=== PATIENT | male | born 1995 | race Caucasian/White ===

== ENCOUNTER 2020-12-07 13:14 | Emergency (ER) | payer MEDICAID ==
[~2020-12-07] VITALS: Ht 182.9 cm; Wt 55.0 kg
[~2020-12-07 13:14] MED LIST: CLIN-26 PO
--- NOTE | 2020-12-07 13:54 | NUR ---
DR JOYA IN ROOM TO PLACE A THORAVENT.
[2020-12-07] MEDS ORDERED: ondansetron/PF 4mg/2ml inj IV ONE (14:05)
[2020-12-07] MEDS ORDERED: morphine 4 MG/ML inj SYRINge IV ONE ×2 (14:05→15:10)
--- NOTE | 2020-12-07 14:11 | NUR ---
ADMIN PAIN MEDS ORDERED AFTER DR JOYA FINISHES INSERTION OF THORAVENT.
[2020-12-07] MEDS ORDERED: LORazepam 2 mg/ml vial IV ONE (15:10)
--- NOTE | 2020-12-07 15:37 | NUR ---
PT REQUESTING FOOD. PER DR JOYA HE CAN IT AND IS GOING.
[2020-12-07] MEDS ORDERED: ONDA4TAB6 PO (16:50)
[2020-12-07] MEDS ORDERED: HYDR-3964 PO (16:50)
[2020-12-07 17:09] VITALS: BP 120/84
[2020-12-08] MEDS ORDERED: NO HOME MEDS (13:38)
== END 2020-12-07 17:14 | disposition home or self-care (01) ==
LOC: ER 13:14
DX: J93.83 Other pneumothorax (principal); J93.9 Pneumothorax, unspecified; F12.10 Cannabis abuse, uncomplicated
CPT/HCPCS: 32551; 71045; 93005; 96374; 96375; 96376; 99285; J2060; J2270; J2405; 32554

== ENCOUNTER 2020-12-08 12:09 | Emergency (ER) | payer MEDICAID ==
[~2020-12-08] VITALS: Ht 180.3 cm; Wt 54.4 kg
[~2020-12-08 12:09] MED LIST changes: +HYDR-3964 PO; +ONDA4TAB6 PO
[2020-12-08] MEDS ORDERED: NO HOME MEDS (13:38)
[2020-12-08 13:56] LABS: ALANINE AMINOTRANSFERASE 11 U/L (12-78); ALBUMIN 4.5 G/DL (3.4-5.0); ALBUMIN/GLOBULIN RATIO 1.4 (1.1-1.5); ALKALINE PHOSPHATASE 89 IU/L (46-116); ANION GAP 8 (8-16); ASPARTATE AMINO TRANSFERASE 9 U/L (10-37); BILIRUBIN,TOTAL 0.9 MG/DL (0.1-1.0); BLOOD UREA NITROGEN 15 MG/DL (7-18); CALCIUM 9.2 MG/DL (8.5-10.1); CHLORIDE 106 MMOL/L (99-107); CREATININE 0.94 MG/DL (0.60-1.10); GLUCOSE 93 MG/DL (70-104); POTASSIUM 3.8 MMOL/L (3.5-5.1); SODIUM 142 MMOL/L (135-145); TOTAL CARBON DIOXIDE 28.2 MMOL/L (24-32); TOTAL PROTEIN 7.7 G/DL (6.4-8.2); eGFR > 90 ML/MIN
[2020-12-08] MEDS ORDERED: magnesium 2GM in 50ml NS 50 ML IV PRN (14:15)
[2020-12-08] MEDS ORDERED: HYDROcodone/acetaminophen 10/325mg tab PO PRN (14:15)
[2020-12-08] MEDS ORDERED: potassium Cl 20 mEq SR tablet PO PRN ×2 (14:15)
[2020-12-08] MEDS ORDERED: mag hydrox/Alum hydrox/simeth 30ml oral suspension PO PRN (14:15)
[2020-12-08] MEDS ORDERED: morphine 2 MG/ML inj. syringe IV PRN ×2 (14:15)
[2020-12-08] MEDS ORDERED: potassium Cl 40MEQ/1/2NS 520ml 520 ML IV PRN ×2 (14:15)
[2020-12-08] MEDS ORDERED: HYDROcodone/acetaminophen 5mg/325mg tablet PO PRN (14:15)
[2020-12-08] MEDS ORDERED: magnesium hydroxide 30ml (MOM) UD suspension PO PRN (14:15)
[2020-12-08] MEDS ORDERED: albuterol 2.5 MG/3 ML nebule NEB PRN (14:15)
[2020-12-08] MEDS ORDERED: magnesium 4gm in 100ml NS 100 ML IV PRN (14:15)
[2020-12-08] MEDS ORDERED: ipratropium/albuterol 3ml nebule NEB PRN (14:15)
[2020-12-08] MEDS ORDERED: ondansetron/PF 4mg/2ml inj IV PRN (14:15)
[2020-12-08] MEDS ORDERED: acetaminophen 325mg tablet PO PRN (14:15)
[2020-12-08 14:30] LABS: BASOPHILS % (AUTO) 0.6 % (0-1); EOSINOPHILS % (AUTO) 0.8 % (0-6); HEMATOCRIT 45.2 % (42.0-52.0); HEMOGLOBIN 15.3 g/dl (14.0-17.9); LYMPHOCYTES # (AUTO) 1.8 X10'3 (1.1-4.8); LYMPHOCYTES % (AUTO) 31.1 % (21-51); MEAN CORPUSCULAR HEMOGLOBIN 30.6 PG (27.0-31.0); MEAN CORPUSCULAR HGB CONC 33.9 g/dL (33.0-36.5); MEAN CORPUSCULAR VOLUME 90.3 FL (78-98); MEAN PLATELET VOLUME 9.6 FL (7.4-10.4); MONOCYTES # (AUTO) 0.5 X10'3 (0-0.9); MONOCYTES % (AUTO) 8.3 % (2-12); NEUTROPHILS # (AUTO) 3.4 X10'3 (1.8-7.7); NEUTROPHILS % (AUTO) 59.2 % (42-75); PLATELET COUNT 153 X10'3 (140-440); RED BLOOD COUNT 5.01 X10'6 (4.70-6.10); RED CELL DISTRIBUTION WIDTH 13.2 % (11.5-14.5); WHITE BLOOD COUNT 5.7 X10'3 (4.5-11.0)
[2020-12-08 16:54] VITALS: BP 100/72
[2020-12-08] MEDS ORDERED: K and/or MAG REPLACEMENT MC SCH (20:00)
[2020-12-09] MEDS ORDERED: HYDR-3965 PO (13:37)
== END 2020-12-08 16:59 | disposition home or self-care (01) ==
LOC: ER 12:12 → ED HOLD 14:14 → UNDOADMIN 14:14 → UNDODISIN 16:59
DX: J93.83 Other pneumothorax (principal); F12.90 Cannabis use, unspecified, uncomplicated; Z98.890 Other specified postprocedural states; Z72.89 Other problems related to lifestyle
CPT/HCPCS: 36415; 71046; 80053; 85025; 93005; 99285; G0378

== ENCOUNTER 2020-12-09 10:22 | Emergency (ER) | payer MEDICAID ==
[~2020-12-09] VITALS: Ht 182.9 cm; Wt 54.0 kg
[~2020-12-09 10:22] MED LIST changes: +NO HOME MEDS
[2020-12-09] MEDS ORDERED: HYDR-3965 PO (13:37)
[2020-12-09 13:55] VITALS: BP 117/79
== END 2020-12-09 13:56 | disposition home or self-care (01) ==
LOC: ER 10:23
DX: J93.83 Other pneumothorax (principal); F17.210 Nicotine dependence, cigarettes, uncomplicated; F12.90 Cannabis use, unspecified, uncomplicated; Z72.89 Other problems related to lifestyle; Z98.890 Other specified postprocedural states; Z79.899 Other long term (current) drug therapy
CPT/HCPCS: 71045; 71250; 99284

== ENCOUNTER 2020-12-11 16:12 | Emergency (ER) | payer MEDICAID ==
[~2020-12-11] VITALS: Ht 182.9 cm; Wt 54.5 kg
[~2020-12-11 16:12] MED LIST changes: -CLIN-26 PO; -HYDR-3964 PO; +HYDR-3965 PO; -ONDA4TAB6 PO
--- NOTE | 2020-12-11 18:19 | NUR ---
pt is resting quietly on gurney, playing on electronic device, resp even and unlabored
[2020-12-11 19:11] VITALS: BP 109/70
== END 2020-12-11 19:13 | disposition home or self-care (01) ==
LOC: ER 16:14
DX: J93.83 Other pneumothorax (principal); F12.90 Cannabis use, unspecified, uncomplicated; Z98.890 Other specified postprocedural states; Z72.89 Other problems related to lifestyle; Z79.899 Other long term (current) drug therapy
CPT/HCPCS: 71046; 99283

== ENCOUNTER 2020-12-14 18:11 | Inpatient (IN) | payer MEDICAID ==
[~2020-12-14] VITALS: Ht 182.9 cm; Wt 54.5 kg
[~2020-12-14 18:11] MED LIST changes: +CLIN-26 PO; +HYDR-3964 PO; +ONDA4TAB6 PO
[2020-12-14 20:53] LABS: BASOPHILS % (AUTO) 0.5 % (0-1); EOSINOPHILS # (AUTO) 0.1 X10'3 (0-0.9); HEMOGLOBIN 14.4 g/dl (14.0-17.9); LYMPHOCYTES # (AUTO) 1.2 X10'3 (1.1-4.8); MONOCYTES # (AUTO) 0.5 X10'3 (0-0.9)
[2020-12-14 20:54] LABS: EOSINOPHILS % (AUTO) 2.1 % (0-6); HEMATOCRIT 42.1 % (42.0-52.0); LYMPHOCYTES % (AUTO) 18.8 % (21-51); MEAN CORPUSCULAR HEMOGLOBIN 30.6 PG (27.0-31.0); MEAN CORPUSCULAR HGB CONC 34.2 g/dL (33.0-36.5); MEAN CORPUSCULAR VOLUME 89.6 FL (78-98); NEUTROPHILS # (AUTO) 4.3 X10'3 (1.8-7.7); NEUTROPHILS % (AUTO) 70.6 % (42-75); PLATELET COUNT 168 X10'3 (140-440); RED CELL DISTRIBUTION WIDTH 12.5 % (11.5-14.5); WHITE BLOOD COUNT 6.2 X10'3 (4.5-11.0)
[2020-12-14 21:04] LABS: PARTIAL THROMBOPLASTIN TIME 29 SECONDS (22-32)
[2020-12-14 21:08] LABS: ALANINE AMINOTRANSFERASE 10 U/L (12-78); ALBUMIN 4.3 G/DL (3.4-5.0); ALBUMIN/GLOBULIN RATIO 1.3 (1.1-1.5); ALKALINE PHOSPHATASE 76 IU/L (46-116); ANION GAP 9 (8-16); ASPARTATE AMINO TRANSFERASE 10 U/L (10-37); BILIRUBIN,TOTAL 0.6 MG/DL (0.1-1.0); BLOOD UREA NITROGEN 16 MG/DL (7-18); BUN/CREATININE RATIO 14.7 (5.4-32.0); CALCIUM 9.2 MG/DL (8.5-10.1); CHLORIDE 104 MMOL/L (99-107); CREATININE 1.09 MG/DL (0.60-1.10); GLUCOSE 115 MG/DL (70-104); POTASSIUM 3.6 MMOL/L (3.5-5.1); SODIUM 144 MMOL/L (135-145); TOTAL CARBON DIOXIDE 31.1 MMOL/L (24-32); TOTAL PROTEIN 7.6 G/DL (6.4-8.2); eGFR 82 ML/MIN
[2020-12-14] MEDS ORDERED: HYDROcodone/acetaminophen 5mg/325mg tablet PO PRN (21:10)
[2020-12-14] MEDS ORDERED: HYDROcodone/acetaminophen 10/325mg tab PO PRN (21:10)
[2020-12-14] MEDS ORDERED: acetaminophen 325mg tablet PO PRN ×2 (21:10)
[2020-12-14] MEDS ORDERED: mag hydrox/Alum hydrox/simeth 30ml oral suspension PO PRN (21:10)
[2020-12-15] VITALS (11 sets, daily range): BP systolic 80–203; BP diastolic 48–92
[2020-12-15] MEDS: normal saline 1000ml 1,000 ML IV SCH ×2 (03:10→17:09)
[2020-12-15 06:05] LABS: BASOPHILS % (AUTO) 0.7 % (0-1); EOSINOPHILS # (AUTO) 0.2 X10'3 (0-0.9); EOSINOPHILS % (AUTO) 3.5 % (0-6); HEMATOCRIT 38.5 % (42.0-52.0); HEMOGLOBIN 13.2 g/dl (14.0-17.9); LYMPHOCYTES # (AUTO) 2.2 X10'3 (1.1-4.8); MEAN CORPUSCULAR HEMOGLOBIN 30.7 PG (27.0-31.0); MEAN CORPUSCULAR HGB CONC 34.2 g/dL (33.0-36.5); MEAN CORPUSCULAR VOLUME 89.8 FL (78-98); MEAN PLATELET VOLUME 9.2 FL (7.4-10.4); MONOCYTES # (AUTO) 0.6 X10'3 (0-0.9); MONOCYTES % (AUTO) 9.1 % (2-12); NEUTROPHILS # (AUTO) 3.1 X10'3 (1.8-7.7); NEUTROPHILS % (AUTO) 50.7 % (42-75); PLATELET COUNT 160 X10'3 (140-440); RED BLOOD COUNT 4.29 X10'6 (4.70-6.10); RED CELL DISTRIBUTION WIDTH 12.4 % (11.5-14.5); WHITE BLOOD COUNT 6.2 X10'3 (4.5-11.0)
[2020-12-15 06:10] LABS: PARTIAL THROMBOPLASTIN TIME 30 SECONDS (22-32)
--- NOTE | 2020-12-15 06:25 | NUR ---
Problems reprioritized. Patient report given, questions answered & plan of care reviewed with CJ COFFEY.
[2020-12-15 06:27] LABS: ALANINE AMINOTRANSFERASE 14 U/L (12-78); ALBUMIN 3.7 G/DL (3.4-5.0); ALBUMIN/GLOBULIN RATIO 1.3 (1.1-1.5); ALKALINE PHOSPHATASE 68 IU/L (46-116); ANION GAP 9 (8-16); ASPARTATE AMINO TRANSFERASE 13 U/L (10-37); BILIRUBIN,TOTAL 0.5 MG/DL (0.1-1.0); BLOOD UREA NITROGEN 15 MG/DL (7-18); BUN/CREATININE RATIO 16.5 (5.4-32.0); CALCIUM 8.8 MG/DL (8.5-10.1); CHLORIDE 108 MMOL/L (99-107); CREATININE 0.91 MG/DL (0.60-1.10); GLUCOSE 97 MG/DL (70-104); POTASSIUM 3.8 MMOL/L (3.5-5.1); SODIUM 145 MMOL/L (135-145); TOTAL CARBON DIOXIDE 27.9 MMOL/L (24-32); TOTAL PROTEIN 6.6 G/DL (6.4-8.2); eGFR > 90 ML/MIN
--- NOTE | 2020-12-15 06:27 | NUR ---
Problems reprioritized. Patient report given, questions answered & plan of care reviewed with CJ Mitchell.
--- NOTE | 2020-12-15 06:45 | NUR ---
Patient in room [facility] 340A. I have received report from YOKASTA RN & DAINA RN and had the opportunity to ask questions and assume patient care.
[2020-12-15] MEDS: morphine 2 MG/ML inj. syringe IV PRN ×2 (09:00→17:21)
[2020-12-15 09:54] LABS: PARTIAL THROMBOPLASTIN TIME 31 SECONDS (22-32)
[2020-12-15] MEDS ORDERED: famotidine/PF 10 mg/ml inj IV ONE (14:00)
--- NOTE | 2020-12-15 14:08 | NUR ---
Malnutrition consult: Pt reports 2-13 lb wt loss with decreased appetite per malnutrition risk screen with RN. Noted that pt underweight using current scaled weight of 54.55 kg, however per scaled wt hx pt likely chronically underweight with documented 54.4 kg taken 12/08 with a chair scale and 56.8 kg 09/25/2014 taken with a standing scale. Scaled wt hx in EMR consistent with reported wt hx at previous visits. Pt admit for recurrent pneumothorax, currently NPO. Pt with no documented decrease in muscle strength or edema. Pt appears well developed well nourished per ED report. Pt currently lacks a minimum of two criteria for malnutrition. Will continue to follow. Addendum: 12/15/20 at [address] Amended: Links added.
[2020-12-15] MEDS: ceFAZolin/D5W- 1GM premix 50 ML IV SCH (17:09)
--- NOTE | 2020-12-15 18:20 | NUR ---
Patient in room [facility] 344. I have received report from CJ Mitchell and had the opportunity to ask questions and assume patient care.
--- NOTE | 2020-12-15 18:30 | NUR ---
Patient in room [facility] 344. I have received report from CJ Mitchell and had the opportunity to ask questions and assume patient care.
[2020-12-15] MEDS ORDERED: LIDOcaine 1% (10mg/ml) 2ml vial ONE (18:45)
[2020-12-15] MEDS ORDERED: sterile Talc 3 GM powder vial (for IntraPleural Use ONLY) IPL ONE (19:00)
--- NOTE | 2020-12-15 19:10 | NUR ---
Problems reprioritized. Patient report given, questions answered & plan of care reviewed with CJ TEMPLETON & DAINA RN.
[2020-12-15] MEDS ORDERED: fentaNYL /PF 50mcg/ml 5ml ampule ONE (19:40)
[2020-12-15] MEDS ORDERED: midazolam 1 mg/ML 2ml injection ONE (19:40)
--- NOTE | 2020-12-15 19:50 | NUR ---
Patient to OR. Report called to CJ Clement in recovery. Belongings will be taken to ICU once patient position is known.
[2020-12-15] MEDS ORDERED: ondansetron/PF 4mg/2ml inj IV PRN ×2 (20:00→21:25)
[2020-12-15] MEDS ORDERED: morphine 4 MG/ML inj SYRINge IV PRN ×3 (20:00→21:25)
[2020-12-15] MEDS ORDERED: morphine 2 MG/ML inj. syringe IV PRN (20:00)
[2020-12-15] MEDS ORDERED: meperidine/PF 25mg/ml syringe IV PRN ×3 (20:00)
[2020-12-15] MEDS ORDERED: ringers solution, lacted 1,000 ML IV SCH (20:00)
[2020-12-15] MEDS ORDERED: proCHLORperazine 10 MG/2 ml inj IV PRN (20:00)
[2020-12-15] MEDS ORDERED: sterile Talc 3 GM powder vial (for IntraPleural Use ONLY) ONE (21:01)
[2020-12-15] MEDS ORDERED: meperidine/PF 25mg/ml syringe ONE (21:16)
[2020-12-15] MEDS ORDERED: propofol 1000mg/100ml bottle 100 ML IV ONE (21:23)
[2020-12-15] MEDS ORDERED: naloxone 0.4 mg/ml inj IV PRN (21:25)
[2020-12-15] MEDS ORDERED: metoclopramide 5 mg/ml inj IV PRN (21:25)
[2020-12-15] MEDS ORDERED: HYDROcodone/acetaminophen 10/325mg tab PO PRN (21:25)
[2020-12-15] MEDS ORDERED: albuterol 2.5 MG/3 ML nebule NEB PRN (21:25)
[2020-12-15] MEDS ORDERED: CADD PCA waste documentation MC PRN (21:25)
[2020-12-15] MEDS ORDERED: rocuronium 10mg/ml inj IV ONE (21:51)
[2020-12-15] MEDS ORDERED: dexamethasone sod phosphate 4mg/ml inj. ONE (21:52)
[2020-12-15] MEDS ORDERED: LIDOcaine 2% (20mg/ml) 5ml vial ONE (21:52)
[2020-12-15] MEDS ORDERED: propofol inj 20 ML IV ONE (21:52)
[2020-12-15 22:00] LABS: ABG BASE EXCESS -6.5 mmol/L (-2.0-2.0); ABG HCO3 21.6 mmol/L (22.0-26.0); ABG OXYGEN SATURATION 98.7 % (94-97); ABG PCO2 (T) 49.9 mmHg (35.0-48.0); ABG PO2 (T) 179.4 mmHg (75.0-100.0); FCOHb 0.3 % (0.0-3.9); FMetHb 0.5 % (0.0-1.5); FO2Hb 97.9 % (94-97); PATIENT TEMPERATURE 35.3; PEEP 5 cm H2O; RESPIRATORY RATE 16 b/min; TIDAL VOLUME 450 mL; TOTAL HEMOGLOBIN 13.8 G/dl (14.0-18.0)
--- NOTE | 2020-12-15 22:00 | NUR ---
PT arrived to unit via ICU bed and accompanied by OR crew, isamar report from Fallon CORONA and anesthesia was received. PT placed on bedside monitor. PT is intubated and RT placed PT on vent, tolerating settings well, O2 sat > 96%. OGT in place and to LIS. PT has chest tube to LT chest with zero drainage noted in atrium at this time. VSS. PT has PIV x2 and A-Line to RT radial. Pineda in place draining to gravity. Sedation started with Propofol and fentanyl being ordered. PT tolerating well. Bilat soft wrist restraints in place and secure. Bed is locked and low. Will continue to monitor.
[2020-12-15] MEDS: potassium Cl 20mEq in D5-NS 1,000 ML IV SCH (22:07)
[2020-12-15] MEDS: FENTANYL-0.9 % NACL/PF 100 ML IV PRN (22:08)
[2020-12-15 22:21] LABS: BASOPHILS # (AUTO) 0.1 X10'3 (0-0.2); BASOPHILS % (AUTO) 0.8 % (0-1); EOSINOPHILS # (AUTO) 0.2 X10'3 (0-0.9); EOSINOPHILS % (AUTO) 2.8 % (0-6); HEMATOCRIT 39.7 % (42.0-52.0); HEMOGLOBIN 13.5 g/dl (14.0-17.9); LYMPHOCYTES # (AUTO) 1.8 X10'3 (1.1-4.8); LYMPHOCYTES % (AUTO) 27.1 % (21-51); MEAN CORPUSCULAR HEMOGLOBIN 30.7 PG (27.0-31.0); MEAN CORPUSCULAR VOLUME 90.3 FL (78-98); MONOCYTES # (AUTO) 0.3 X10'3 (0-0.9); MONOCYTES % (AUTO) 5.2 % (2-12); NEUTROPHILS # (AUTO) 4.2 X10'3 (1.8-7.7); NEUTROPHILS % (AUTO) 64.1 % (42-75); PLATELET COUNT 148 X10'3 (140-440); RED CELL DISTRIBUTION WIDTH 12.5 % (11.5-14.5); WHITE BLOOD COUNT 6.6 X10'3 (4.5-11.0)
[2020-12-15 22:31] LABS: PARTIAL THROMBOPLASTIN TIME 29 SECONDS (22-32)
[2020-12-15 22:37] LABS: ALANINE AMINOTRANSFERASE 12 U/L (12-78); ALBUMIN 3.7 G/DL (3.4-5.0); ALBUMIN/GLOBULIN RATIO 1.3 (1.1-1.5); ALKALINE PHOSPHATASE 72 IU/L (46-116); ANION GAP 11 (8-16); ASPARTATE AMINO TRANSFERASE 11 U/L (10-37); BILIRUBIN,TOTAL 0.5 MG/DL (0.1-1.0); BLOOD UREA NITROGEN 11 MG/DL (7-18); BUN/CREATININE RATIO 12.6 (5.4-32.0); CHLORIDE 109 MMOL/L (99-107); CREATININE 0.87 MG/DL (0.60-1.10); GLUCOSE 123 MG/DL (70-104); MAGNESIUM 1.8 MG/DL (1.5-2.4); POTASSIUM 3.9 MMOL/L (3.5-5.1); SODIUM 144 MMOL/L (135-145); TOTAL CARBON DIOXIDE 24.5 MMOL/L (24-32); TOTAL PROTEIN 6.5 G/DL (6.4-8.2); eGFR > 90 ML/MIN
[2020-12-16] VITALS (19 sets, daily range): BP systolic 104–151; BP diastolic 54–87
[2020-12-16] MEDS ORDERED: ceFAZolin inj. 1,000 MG in dextrose 5%-water 50ml 50 ML IV SCH ×2
--- NOTE | 2020-12-16 | NUR ---
PT wakes up wild. Thrashes head side to side, kicks mattress, pulls against restraints, bites down on ETT and disconnected ETT from vent tubing. RT placed a bite block on ETT and charge entry specialist got leg braces which have been placed on PT to prevent kicking. PT is sedated with fentanyl and propofol, titrating up to make PT comfortable and compliant with the vent. VSS. Bilat soft wrist restraints remain in place and secure. Will continue to monitor.
[2020-12-16] MEDS ORDERED: propofol 1000mg/100ml bottle 100 ML IV SCH (00:15)
[2020-12-16] MEDS: ceFAZolin/D5W- 1GM premix 50 ML IV SCH ×2 (01:11→07:39)
[2020-12-16] MEDS: FENTANYL-0.9 % NACL/PF 100 ML IV PRN ×2 (01:12→05:18)
[2020-12-16 03:03] LABS: ABG BASE EXCESS -2.4 mmol/L (-2.0-2.0); ABG HCO3 20.7 mmol/L (22.0-26.0); ABG OXYGEN SATURATION 98.8 % (94-97); ABG PCO2 (T) 31.4 mmHg (35.0-48.0); ABG PO2 (T) 159.4 mmHg (75.0-100.0); FCOHb 0.3 % (0.0-3.9); FMetHb 0.5 % (0.0-1.5); PATIENT TEMPERATURE 37.1; PEEP 5 cm H2O; RESPIRATORY RATE 20 b/min; TIDAL VOLUME 450 mL
[2020-12-16 03:54] LABS: BASOPHILS % (AUTO) 0.1 % (0-1); EOSINOPHILS % (AUTO) 0.1 % (0-6); HEMOGLOBIN 13.4 g/dl (14.0-17.9); LYMPHOCYTES # (AUTO) 0.5 X10'3 (1.1-4.8); LYMPHOCYTES % (AUTO) 3.7 % (21-51); MEAN CORPUSCULAR HEMOGLOBIN 30.3 PG (27.0-31.0); MEAN CORPUSCULAR HGB CONC 34.4 g/dL (33.0-36.5); MEAN CORPUSCULAR VOLUME 88.1 FL (78-98); MEAN PLATELET VOLUME 9.7 FL (7.4-10.4); MONOCYTES # (AUTO) 0.5 X10'3 (0-0.9); MONOCYTES % (AUTO) 3.5 % (2-12); NEUTROPHILS # (AUTO) 13.3 X10'3 (1.8-7.7); NEUTROPHILS % (AUTO) 92.6 % (42-75); PLATELET COUNT 159 X10'3 (140-440); RED BLOOD COUNT 4.42 X10'6 (4.70-6.10); RED CELL DISTRIBUTION WIDTH 12.3 % (11.5-14.5); WHITE BLOOD COUNT 14.3 X10'3 (4.5-11.0)
[2020-12-16 04:04] LABS: ALANINE AMINOTRANSFERASE 13 U/L (12-78); ALBUMIN 3.7 G/DL (3.4-5.0); ALBUMIN/GLOBULIN RATIO 1.3 (1.1-1.5); ALKALINE PHOSPHATASE 72 IU/L (46-116); ANION GAP 14 (8-16); ASPARTATE AMINO TRANSFERASE 14 U/L (10-37); BILIRUBIN,TOTAL 0.5 MG/DL (0.1-1.0); BLOOD UREA NITROGEN 11 MG/DL (7-18); CALCIUM 8.6 MG/DL (8.5-10.1); CHLORIDE 107 MMOL/L (99-107); CREATININE 0.92 MG/DL (0.60-1.10); GLUCOSE 140 MG/DL (70-104); MAGNESIUM 1.8 MG/DL (1.5-2.4); POTASSIUM 3.5 MMOL/L (3.5-5.1); SODIUM 143 MMOL/L (135-145); TOTAL CARBON DIOXIDE 21.6 MMOL/L (24-32); TOTAL PROTEIN 6.6 G/DL (6.4-8.2); TRIGLYCERIDES 109 MG/DL (20-135); eGFR > 90 ML/MIN
[2020-12-16] MEDS: normal saline 1000ml 1,000 ML IV SCH (04:46)
--- NOTE | 2020-12-16 06:14 | NUR ---
Problems reprioritized. Patient report given, questions answered & plan of care reviewed with Yisel CORONA.
--- NOTE | 2020-12-16 07:00 | NUR ---
Patient in room ICU 2039. I have received report from Kelley CORONA and had the opportunity to ask questions and assume patient care.
[2020-12-16] MEDS: gabapentin 300mg capsule PO SCH ×2 (07:40→21:52)
--- NOTE | 2020-12-16 08:30 | NUR ---
Patient on sedation vacation and on spontaneous breathing trial on ventilator. Patient extubated himself. Tolerated being extubated well. Placed on O2 at 2l with sats in high 90's. ET in mid 40's.
[2020-12-16] MEDS: ondansetron/PF 4mg/2ml inj IV PRN ×2 (08:44→19:07)
[2020-12-16] MEDS: potassium Cl 20mEq in D5-NS 1,000 ML IV SCH (11:55)
[2020-12-16] MEDS: HYDROcodone/acetaminophen 10/325mg tab PO PRN (12:45)
--- NOTE | 2020-12-16 15:45 | NUR ---
Patient ambuated in hallway with physical therapy. Tolerated well. Up in chair for 1 1/2 hours. Encouraged to use I/S. Medicated with [place] providing good pain relief. No air leak present in chest tube.
--- NOTE | 2020-12-16 16:30 | NUR ---
Transferred to room 344B via wheelchair. Jeremiah well. Report given to Shama CORONA.
--- NOTE | 2020-12-16 18:39 | NUR ---
Problems reprioritized. Patient report given, questions answered & plan of care reviewed with Pat RN.
[2020-12-16] MEDS: magnesium hydroxide 30ml (MOM) UD suspension PO PRN (21:52)
[2020-12-17] MEDS: ondansetron/PF 4mg/2ml inj IV PRN ×2 (01:44→18:35)
[2020-12-17] MEDS: morphine 2 MG/ML inj. syringe IV PRN (01:45)
[2020-12-17 07:14] LABS: BASOPHILS % (AUTO) 0.1 % (0-1); EOSINOPHILS # (AUTO) 0.1 X10'3 (0-0.9); EOSINOPHILS % (AUTO) 0.9 % (0-6); HEMATOCRIT 39.6 % (42.0-52.0); HEMOGLOBIN 13.5 g/dl (14.0-17.9); LYMPHOCYTES # (AUTO) 1.3 X10'3 (1.1-4.8); LYMPHOCYTES % (AUTO) 10.9 % (21-51); MEAN CORPUSCULAR HEMOGLOBIN 30.2 PG (27.0-31.0); MEAN CORPUSCULAR VOLUME 88.9 FL (78-98); MEAN PLATELET VOLUME 9.3 FL (7.4-10.4); MONOCYTES # (AUTO) 0.9 X10'3 (0-0.9); MONOCYTES % (AUTO) 7.2 % (2-12); NEUTROPHILS # (AUTO) 9.5 X10'3 (1.8-7.7); NEUTROPHILS % (AUTO) 80.9 % (42-75); PLATELET COUNT 146 X10'3 (140-440); RED BLOOD COUNT 4.45 X10'6 (4.70-6.10); RED CELL DISTRIBUTION WIDTH 12.4 % (11.5-14.5); WHITE BLOOD COUNT 11.8 X10'3 (4.5-11.0)
[2020-12-17 07:30] VITALS: BP 113/63
[2020-12-17] MEDS: HYDROcodone/acetaminophen 10/325mg tab PO PRN ×2 (07:39→16:52)
[2020-12-17] MEDS: gabapentin 300mg capsule PO SCH (07:39)
[2020-12-17 08:01] LABS: ALANINE AMINOTRANSFERASE 13 U/L (12-78); ALBUMIN 3.5 G/DL (3.4-5.0); ALBUMIN/GLOBULIN RATIO 1.1 (1.1-1.5); ALKALINE PHOSPHATASE 63 IU/L (46-116); ANION GAP 11 (8-16); ASPARTATE AMINO TRANSFERASE 16 U/L (10-37); BILIRUBIN,TOTAL 0.7 MG/DL (0.1-1.0); BLOOD UREA NITROGEN 5 MG/DL (7-18); BUN/CREATININE RATIO 6.9 (5.4-32.0); CHLORIDE 107 MMOL/L (99-107); CREATININE 0.72 MG/DL (0.60-1.10); GLUCOSE 91 MG/DL (70-104); POTASSIUM 3.3 MMOL/L (3.5-5.1); SODIUM 144 MMOL/L (135-145); TOTAL CARBON DIOXIDE 26.2 MMOL/L (24-32); TOTAL PROTEIN 6.7 G/DL (6.4-8.2); eGFR > 90 ML/MIN
[2020-12-17 08:16] LABS: CALCIUM 8.6 MG/DL (8.5-10.1)
--- NOTE | 2020-12-17 09:11 | NUR ---
PAGER ID: [phone] MESSAGE: Kylie JENKINSB: K+ LEVEL 3.3. NO REPLACEMENT PROTOCOL ORDERED. THANK YOU!
[2020-12-17 12:25] VITALS: BP 130/72
[2020-12-17] MEDS: magnesium hydroxide 30ml (MOM) UD suspension PO PRN (16:49)
--- NOTE | 2020-12-17 17:59 | NUR ---
Problems reprioritized. Patient report given, questions answered & plan of care reviewed with CJ Odom.
--- NOTE | 2020-12-17 18:32 | NUR ---
patient stable and appropriate for discharge home. IV removed, all belongings gathered. dressing supplies given to patient, instructed to keep CDI. No new prescriptions ordered. All discharge instructions and education have been given and reviewed with patient. all questions answered. Patient is attempting to find a ride home, he siad he was calling his mother. Home medications in pharmacy are going to be picked up by noc RN when he is ready to leave.
--- NOTE | 2020-12-17 18:56 | NUR ---
pt discharged home, pt a/ox4 and appropriate. all lines and dressing dc'd. [place] x9 given witnessed by Melanie CORONA. all belongings accounted for and sent home with pt along with pt education. pt dc'd home with father via private vehicle.
== END 2020-12-17 18:55 | disposition home or self-care (01) | DRG 143 ==
LOC: ER 18:12 → ED HOLD 21:10 → SUR 3N 22:55 → ICU 2S 12-15 21:55 → SUR 3N 12-16 19:04
PROVIDERS: ADMIT Internal Medicine; ATTEND Internal Medicine
PROC: 5A1935Z Respiratory Ventilation, Less than 24 Consecutive Hours (ICD-10-PCS; 2020-12-15)
PROC: 3E0L3GC Introduction of Other Therapeutic Substance into Pleural Cavity, Percutaneous Approach (ICD-10-PCS; 2020-12-15)
PROC: 0BH17EZ Insertion of Endotracheal Airway into Trachea, Via Natural or Artificial Opening (ICD-10-PCS; 2020-12-15)
PROC: 0W9B30Z Drainage of Left Pleural Cavity with Drainage Device, Percutaneous Approach (ICD-10-PCS; principal; 2020-12-15 20:09)
DX: J93.83 Other pneumothorax (principal); F17.210 Nicotine dependence, cigarettes, uncomplicated; Z20.822 Contact with and (suspected) exposure to COVID-19; Z80.0 Family history of malignant neoplasm of digestive organs; Z80.1 Family history of malignant neoplasm of trachea, bronchus and lung
CPT/HCPCS: 36415; 36600; 71045; 71046; 80053; 82803; 82948; 83735; 84478; 85018; 85025; 85610; 85730; 87070; 87081; 87426; 93005; 94002; 94003; 94760; 97116; 97161; 97530; 99285; A4618; A6258; A6449; A7000; A7048; C1758; G0378; J0690; J1100; J2001; J2175; J2250; J2270; J2405; J2704; J2765; J3010; J3480; J3490; J7030; J7040; J7120

== ENCOUNTER 2022-11-04 09:58 | Emergency (ER) | payer MEDICAID ==
[~2022-11-04] VITALS: Ht 180.3 cm; Wt 46.8 kg
[~2022-11-04 09:58] MED LIST changes: -CLIN-26 PO; -HYDR-3964 PO; -HYDR-3965 PO; -ONDA4TAB6 PO
[2022-11-04] MEDS ORDERED: AMOX-580 PO (10:27)
[2022-11-04 10:29] VITALS: BP 109/74
== END 2022-11-04 10:41 | disposition home or self-care (01) ==
LOC: ER 09:59
DX: J01.90 Acute sinusitis, unspecified (principal)
CPT/HCPCS: 99283

== ENCOUNTER 2022-12-18 21:00 | Emergency (ER) | payer MEDICAID ==
[~2022-12-18] VITALS: Ht 180.3 cm; Wt 58.6 kg
[2022-12-18] MEDS ORDERED: HYDROcodone/acetaminophen 5mg/325mg tablet PO ONE (22:35)
[2022-12-18] MEDS ORDERED: HYDR-3973 PO (23:05)
[2022-12-18 23:15] VITALS: BP 121/89
== END 2022-12-18 23:18 | disposition home or self-care (01) ==
LOC: ER 21:01
DX: S92.592A Other fracture of left lesser toe(s), initial encounter for closed fracture (principal); F12.10 Cannabis abuse, uncomplicated; Z79.899 Other long term (current) drug therapy; X58.XXXA Exposure to other specified factors, initial encounter; Y93.89 Activity, other specified; Y92.89 Other specified places as the place of occurrence of the external cause; Y99.8 Other external cause status
CPT/HCPCS: 73660; 99283

== ENCOUNTER 2024-06-07 00:01 | Emergency (ER) | payer MEDICAID ==
[~2024-06-07] VITALS: Ht 180.3 cm; Wt 59.0 kg
[2024-06-07] MEDS: ceFAZolin 1gm IM kit IM ONE (00:26)
[2024-06-07] MEDS: ibuprofen tablet 400 MG TABLET PO ONE (00:28)
[2024-06-07] MEDS: ondansetron 4mg rapidly disintigrating tab PO ONE (00:28)
[2024-06-07] MEDS: TETanus/Pertussis (Acell)/Diphther VAC/PF (Tdap-Adult) 0.5ml syringe IMVAC ONE (00:28)
[2024-06-07] MEDS: bacitracin 15gm ointment TP ONE (00:28)
[2024-06-07] MEDS: acetaminophen 325mg tablet PO ONE (00:29)
[2024-06-07] MEDS: LIDOcaine 1% 30ml preserv. free vial IJ ONE (00:57)
[2024-06-07 04:09] VITALS: BP 110/60; PULSE 77; O2SAT 98
[2024-06-07] MEDS ORDERED: CEPH-585 PO (05:53)
[2024-06-07 06:02] VITALS: RESP 18; TEMP 99.2
== END 2024-06-07 06:10 | disposition home or self-care (01) ==
LOC: ER 00:02
DX: S56.021A Laceration of flexor muscle, fascia and tendon of right thumb at forearm level, initial encounter (principal); F12.90 Cannabis use, unspecified, uncomplicated; Z72.89 Other problems related to lifestyle; Z98.890 Other specified postprocedural states; W26.9XXA Contact with unspecified sharp object(s), initial encounter; Y93.89 Activity, other specified; Y92.89 Other specified places as the place of occurrence of the external cause; Y99.8 Other external cause status
CPT/HCPCS: 12001; 73140; 90471; 90715; 96372; 99284; A6222; J0690; J7030; 12002; A6449

== ENCOUNTER 2024-06-08 13:14 | Emergency (ER) | payer MEDICAID ==
[~2024-06-08] VITALS: Ht 180.3 cm; Wt 56.5 kg
[~2024-06-08 13:14] MED LIST changes: +CEPH-585 PO
[2024-06-08 13:17] VITALS: BP 112/76; PULSE 122; RESP 16; TEMP 97.8; O2SAT 97
== END 2024-06-08 15:03 | disposition home or self-care (01) ==
LOC: ER 13:15
DX: S61.011D Laceration without foreign body of right thumb without damage to nail, subsequent encounter (principal); F12.90 Cannabis use, unspecified, uncomplicated; Z72.89 Other problems related to lifestyle; Z98.890 Other specified postprocedural states; X58.XXXD Exposure to other specified factors, subsequent encounter
CPT/HCPCS: 99281; A6222